=== PATIENT | female | born 1990 | race African-American/Black ===

== ENCOUNTER 2016-09-12 20:00 | Emergency (ER) | payer MEDICAID ==
[~2016-09-12] VITALS: Ht 172.7 cm; Wt 192.0 kg
[2016-09-12 20:10] VITALS: Ht 172.7 cm; Wt 192.0 kg
[2016-09-13] MEDS ORDERED: LIDOCAINE 1% (MDV) 20 ML INJ SC ONE (00:30)
--- NOTE | 2016-09-13 00:38 | ERD ---
ER Documentation Chief Complaint Date/Time DATE: 09/13/16 TIME: 00:37 Chief Complaint abscess labia area HPI 26-year-old female presents here in emergency department for complaints of labia redness and swelling for 3 days, patient has history of Bartholin's cyst abscess before, feels the same way. Patient discussed the pain as throbbing pain , 6/10 scale, is worse upon touching the area. Patient did not take any medications of symptoms. She denies any fever or chills. ROS All systems reviewed and are negative except as per history of present illness. Medications Home Meds Reported Medications [none] Unknown Strength No Conflict Check 09/13/16 Allergies Allergies: Coded Allergies: No Known Allergy (Unverified , 07/02/14) PMhx/Soc Medical and Surgical Hx: pt denies Medical Hx, pt denies Surgical Hx History of Surgery: No Anesthesia Reaction: No Hx Neurological Disorder: No Hx Respiratory Disorders: No Hx Cardiac Disorders: No Hx Psychiatric Problems: No Hx Miscellaneous Medical Probl: No (DENIES MEDICAL AND SURGICAL HX.) Hx Alcohol Use: Yes (RARELY) Hx Substance Use: No Hx Tobacco Use: No Smoking Status: Never smoker FmHx Family History: No coronary disease, No diabetes, No other Physical Exam Vitals Vital Signs Date Time Temp Pulse Resp B/P Pulse Ox O2 Delivery O2 Flow Rate FiO2 09/12/16 20:10 98.6 94 20 147/90 98 Physical Exam GENERAL: The patient is well developed and appropriate for usual state of health, in no apparent distress. CHEST: Clear to auscultation bilaterally. There are no rales, wheezes or rhonchi. HEART: Regular rate and rhythm. No murmurs, clicks, rubs or gallops. No S3 or S4. ABDOMEN: Soft, nontender and nondistended. Good bowel sounds. No rebound or guarding. No gross peritonitis. No gross organomegaly or masses. No Munguia sign or McBurney point tenderness. BACK: No midline or flank tenderness. EXTREMITIES: Equal pulses bilaterally. There is no peripheral clubbing, cyanosis or edema. No focal swelling or erythema. Full range of motion. Grossly neurovascularly intact. NEURO: Alert and oriented. Cranial nerves 2-12 intact. Motor strength in all 4 extremities with 5/5 strength. Sensation grossly intact. Normal speech and gait. SKIN: There is no apparent rash or petechia. The skin is warm and dry. HEMATOLOGIC AND LYMPHATIC: There is no evidence of excessive bruising or lymphedema. No gross cervical, axillary, or inguinal lymphadenopathy. EU: Noted palpable right Bartholin's cyst, no abscess noted, no redness, nontender on palpation, no fluctuance. Left Bartholin's abscess is normal. No open wounds noted in the perineal area. No rash noted. Results 24 hrs Current Medications Medications (Trade) Dose Ordered Sig/Patti Route PRN Reason Start Time Stop Time Status Last Admin Dose Admin Lidocaine (Xylocaine 1% (Mdv) 20 ml) 3 ml ONCE ONCE SC 09/13/16 00:30 09/13/16 00:31 DC Procedures/MDM Medical decision making: Patient's brother and sisters is prominent but there is no abscess or any infection on affected area. Patient had a history of Bartholin cyst abscess on affected area, most likely can be scar tissue. Symptoms of any acute bacterial infection at this time. Incision and drainage not indicated at this time. Patient does complain of pain on affected area, will be given ibuprofen, tramadol to help with symptoms. Patient was advised to follow-up with gynecology specialist. Patient was advised to return to emergency department for any worsening symptoms. Departure Diagnosis: Primary Impression: Bartholin gland cyst Condition: Stable Patient Instructions: Bartholin's Cyst (No Infection) CHAYO MALAGON NP Sep 13, 2016 00:38
[2016-09-13] MEDS ORDERED: IBUP-1542 PO (01:32)
[2016-09-13] MEDS ORDERED: TRAM50TA2 PO (01:32)
== END 2016-09-13 02:01 | disposition home or self-care (01) ==
LOC: FTE 20:00
DX: N75.0 Cyst of Bartholin's gland (principal)
CPT/HCPCS: Z7502; Z7610; 99283